=== PATIENT | male | born 1990 | race Caucasian/White ===

== ENCOUNTER 2021-06-13 04:05 | Emergency (ER) | payer MEDICAID, OTHER ==
[~2021-06-13] VITALS: Ht 180.3 cm; Wt 220.0 kg
[2021-06-13 04:09] VITALS: BP 136/83
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
[2021-06-13] MEDS ORDERED: KETOROLAC 60 MG/2 ML ONE (05:17)
[2021-06-13] MEDS ORDERED: KETOROLAC 30 MG/1 ML IM ONE (05:30)
--- NOTE | 2021-06-13 06:34 | NUR ---
SENIOR LINUX ENGINEER APPLIED SPLINT TO PTS AFFECTED FOOT, PT GIVEN SCRIPTS AND ORTHO REFERRAL, PT DISCHARGED HOME
== END 2021-06-13 06:36 | disposition home or self-care (01) ==
LOC: ED 05:42
DX: S92.355A Nondisplaced fracture of fifth metatarsal bone, left foot, initial encounter for closed fracture (principal); F17.210 Nicotine dependence, cigarettes, uncomplicated; W18.30XA Fall on same level, unspecified, initial encounter; Y93.89 Activity, other specified; Y92.410 Unspecified street and highway as the place of occurrence of the external cause; Y99.8 Other external cause status
CPT/HCPCS: 29515; 73630; 96372; 99283; J1885

== ENCOUNTER 2021-08-04 09:28 | Emergency (ER) | payer OTHER ==
[~2021-08-04] VITALS: Ht 180.3 cm; Wt 100.2 kg
[2021-08-04 09:30] VITALS: BP 158/102
== END 2021-08-04 10:55 | disposition home or self-care (01) ==
LOC: ED 09:32
DX: B08.5 Enteroviral vesicular pharyngitis (principal); J02.9 Acute pharyngitis, unspecified; R51.9 Headache, unspecified; F17.200 Nicotine dependence, unspecified, uncomplicated